=== PATIENT | female | born 1940 | race Caucasian/White ===

== ENCOUNTER 2017-08-19 10:50 | Emergency (ER) | payer OTHER ==
[~2017-08-19] VITALS: Ht 149.9 cm; Wt 68.0 kg
[2017-08-19 10:50] VITALS: BP_SYST 200
--- NOTE | 2017-08-19 10:50 | NUR ---
Pt placed to ER bed 04, to gown. Pt c/o right leg pain x 3 weeks, unable to sleep or bear weight on extremity. Denies trauma or injury.
--- NOTE | 2017-08-19 11:00 | NUR ---
Dr. Rojas at bedside.
[2017-08-19] MEDS ORDERED: methylPREDNISolone SOD SUCC/PF 62.5 MG/ML VIAL IM ONE (11:15)
[2017-08-19] MEDS ORDERED: fentaNYL CITRATE/PF 100 MCG/2 ML AMP IM ONE (11:15)
[2017-08-19] MEDS ORDERED: DIPHENHYDRAMINE INJ 50 MG/ML VIAL IM ONE (12:30)
[2017-08-19] MEDS ORDERED: MEPERIDINE HCL/PF 50 MG/ML AMP IM ONE (12:30)
--- NOTE | 2017-08-19 12:30 | NUR ---
Pt c/o pain to RLE, Dr. Rojas notified. Pt to be medicated.
--- NOTE | 2017-08-19 13:30 | NUR ---
Pt resting quietly, even and non-labored respirations, NAD.
[2017-08-19 14:04] VITALS: BP_SYST 168
--- NOTE | 2017-08-19 14:04 | NUR ---
Patient given written and verbal discharge instructions and verbalizes understanding. ER MD discussed with patient the results and treatment provided. Patient in stable condition. ID arm band removed. No Rx given. Patient educated on pain management and to follow up with PMD. Pain Scale 2/10. Opportunity for questions provided and answered. Medication side effect fact sheet provided.
== END 2017-08-19 14:04 | disposition home or self-care (01) ==
LOC: SED 10:50
DX: M54.40 Lumbago with sciatica, unspecified side (principal); R03.0 Elevated blood-pressure reading, without diagnosis of hypertension; E11.40 Type 2 diabetes mellitus with diabetic neuropathy, unspecified
CPT/HCPCS: 96372; 99284; J1200; J2175; J2930; J3010